=== PATIENT | male | born 1935 | race Caucasian/White ===

== ENCOUNTER 2021-04-30 10:37 | Inpatient (IN) ==
[2021-04-30] MEDS ORDERED: Ondansetron 4 mg VIAL 2 MG/ML 2 ml VIAL IV PRN (11:48)
[2021-04-30 12:46] LABS: ABS Basophils 0.1 10^3/ul (0-0.2); ABS Lymphocytes 0.8 10^3/ul (1.0-4.8); ABS Monocytes 0.8 10^3/ul (0-0.8); ABS Neutrophils 13.4 10^3/ul (1.5-7.7); Eosinophil % 0.2 %; Hematocrit 37 % (42-52); Hemoglobin 12.2 g/dL (14.0-18.0); Mean Corpuscular HGB Conc 33 g/dL (31-36); Mean Corpuscular Hemoglobin 29 pg (27-31); Mean Corpuscular Volume 86 fL (80-94); Platelet Count 360 10^3/uL (150-450); Red Blood Count 4.23 10^6 /uL (4.18-5.48); Red Cell Distribution Width 15 % (10-15); White Blood Count 15.1 10^3/uL (3.5-10.8)
[2021-04-30 13:04] LABS: Albumin 3.4 g/dL (3.2-5.2); Albumin/Globulin Ratio 1.2 (1-3); Globulin 2.9 g/dL (2-4); Magnesium 1.8 mg/dL (1.9-2.7); Phosphorus 2.8 mg/dL (2.5-5.0); Potassium 3.5 mmol/L (3.5-5.0); Total Bilirubin 0.6 mg/dL (0.2-1.0); Total Protein 6.3 g/dL (6.4-8.9); eGFR CKD-EPI 87.3 (>60)
[2021-04-30] MEDS: Lactated Ringers 1000 ml BAG 1,000 ML IV SCH (13:28)
[2021-04-30 18:35] LABS: INR 1.35 (0.86-1.15)
[2021-05-01] MEDS: Lactated Ringers 1000 ml BAG 1,000 ML IV SCH (02:55)
[2021-05-01] MEDS ORDERED: Magnesium Sulfate 2 gm BAG 2 GM/50 ML BAG IVPB ONE (09:06)
[2021-05-01] MEDS ORDERED: PEG 3000 GI LAVAGE 1 GALLON PO ONE ×2 (09:13)
[2021-05-01 12:13] VITALS: BP 110/57
[2021-05-01 13:42] LABS: Ferritin 159.3 ng/mL (24-336)
[2021-05-02 15:42] LABS: % Iron Saturation 8 % (14 - 50); Total Iron Binding Capacity 221 mcg/dL (250 - 400)
== END 2021-05-01 16:50 | disposition short-term general hospital (02) | DRG 376 ==
LOC: SSU 10:37
PROVIDERS: ADMIT Surgery; ATTEND Surgery

== ENCOUNTER 2022-12-05 20:21 | Inpatient (IN) ==
[2022-12-05 20:59] LABS: Hematocrit 39.1 % (38-53); Hemoglobin 13.2 g/dL (13.2-16.3); Mean Corpuscular Hemoglobin 30.9 pg (27-33); Mean Corpuscular Hgb Conc 33.8 g/dL (31-36); Mean Corpuscular Volume 91.3 fL (80-97); Mean Platelet Volume 7.4 fL (7.5-11.2); Platelet Count 165 10^3/uL (150-450); Red Blood Count 4.29 10^6/uL (4.06-5.63); White Blood Count 21.9 10^3/uL (3.6-10.2)
[2022-12-05 21:10] LABS: Activated Partial Thrombo Time 29.6 seconds (26.0-38.0); INR 1.11 (0.83-1.13)
[2022-12-05] MEDS ORDERED: Iodixanol (CONTRAST) 320 MG/ML 100 ML SDV IV ONE (21:22)
[2022-12-05 21:25] LABS: Albumin 4.1 g/dL (3.2-5.2); Albumin/Globulin Ratio 1.6 (1-3); Calcium 9.7 mg/dL (8.6-10.3); Creatinine, Serum 1.2 mg/dL (0.67-1.17); Globulin 2.6 g/dL (2-4); HDL Cholesterol 70.6 mg/dL; Total Bilirubin 1.7 mg/dL (0.2-1.0); Total Protein 6.7 g/dL (6.4-8.9); eGFR CKD-EPI 57.8 (>60)
[2022-12-05 21:29] LABS: Potassium 3.8 mmol/L (3.5-5.0)
[2022-12-05 21:30] LABS: Direct Bilirubin 0.2 mg/dL (0.03-0.18); Indirect Bilirubin 1.5 mg/dL (0.3-1.0)
[2022-12-05 21:51] LABS: ABS Basophils 0.1 10^3/uL (0.0-0.1); ABS Lymphocytes 0.4 10^3/uL (1.0-4.8); ABS Monocytes 1.3 10^3/uL (0.0-1.1); ABS Neutrophils 20.1 10^3/uL (1.5-7.6); ABS Nucleated RBC 0.03 10^3/ul; Eosinophil % 0.1 %; Lymphocyte % 1.7 %; Nucleated Red Blood Cells % 0.1 /100 WBC (0.0-0.4)
[2022-12-05 21:58] LABS: Urine Appearance Turbid; Urine Bilirubin Negative (Negative); Urine Blood 3+ (Negative); Urine Color Yellow; Urine Glucose Negative (Negative); Urine Ketones Trace (Negative); Urine Nitrite Negative (Negative); Urine Protein 2+(100 mg/dL) (Negative); Urine Specific Gravity 1.029 (1.002-1.030); Urine Urobilinogen Negative (Negative)
[2022-12-05] MEDS ORDERED: NORMOSOL-R pH 7.4 SEPSIS* BAG 2,120 ML IV ONE (21:58)
[2022-12-05] MEDS ORDERED: cefTRIAXone 1 gm/50 mL D5W 1 GM/50 ML BAG IV ONE (22:00)
[2022-12-05 22:04] LABS: Urine Amorphous Crystals Present (Absent); Urine Bacteria Absent (Absent); Urine Red Blood Cell 3+(>10/hpf) (Absent); Urine Squamous Epithelial Cell Present (Absent); Urine White Blood Cell 3+(>20/hpf) (Absent)
[2022-12-05 22:28] LABS: C Reactive Protein 26.32 mg/L (<8.01)
[2022-12-05] MEDS ORDERED: Ondansetron 4 mg VIAL 2 MG/ML 2 ml VIAL IV PRN (23:42)
[2022-12-06] MEDS: Enoxaparin 40 MG/0.4 ML SYR SUBCUT SCH ×2 (01:15→20:51)
[2022-12-06] MEDS ORDERED: NS 0.9% 1000 ml BAG 1,000 ML IV SCH (02:00)
[2022-12-06 06:11] LABS: ABS Lymphocytes 0.4 10^3/uL (1.0-4.8); ABS Monocytes 0.9 10^3/uL (0.0-1.1); Eosinophil % 0.1 %; Hematocrit 35.3 % (38-53); Hemoglobin 11.9 g/dL (13.2-16.3); Lymphocyte % 2.1 %; Mean Corpuscular Hemoglobin 31.1 pg (27-33); Mean Corpuscular Hgb Conc 33.7 g/dL (31-36); Mean Corpuscular Volume 92.2 fL (80-97); Mean Platelet Volume 7.8 fL (7.5-11.2); Platelet Count 143 10^3/uL (150-450); Red Blood Count 3.83 10^6/uL (4.06-5.63); White Blood Count 19.3 10^3/uL (3.6-10.2)
[2022-12-06 06:35] LABS: Albumin 3.4 g/dL (3.2-5.2); Albumin/Globulin Ratio 1.4 (1-3); Calcium 8.5 mg/dL (8.6-10.3); Creatinine, Serum 0.97 mg/dL (0.67-1.17); Globulin 2.5 g/dL (2-4); Potassium 3.6 mmol/L (3.5-5.0); Total Bilirubin 1.5 mg/dL (0.2-1.0); Total Protein 5.9 g/dL (6.4-8.9); eGFR CKD-EPI 74.6 (>60)
[2022-12-06] MEDS ORDERED: Piperacillin/Tazobac 3.375 BAG 3.375 GM/100 ML BAG IV ONE (07:37)
[2022-12-06] MEDS ORDERED: Zosyn per Pharmacy NOTE FOLLOW UP SCH (08:00)
[2022-12-06] MEDS: PTO: Multivitamins/Mins AREDS2 (NF) CAP PO SCH ×2 (08:47→21:07)
[2022-12-06] MEDS: ZOSYN 3.375 GM Q8H per EXTENDED INFUSION IV SCH ×2 (12:06→20:51)
[2022-12-06] MEDS ORDERED: cefTRIAXone 1 gm/50 mL D5W 1 GM/50 ML BAG IV SCH (21:00)
[2022-12-07] MEDS: ZOSYN 3.375 GM Q8H per EXTENDED INFUSION IV SCH ×3 (04:50→20:21)
[2022-12-07] MEDS: PTO: Multivitamins/Mins AREDS2 (NF) CAP PO SCH ×2 (10:31→20:20)
[2022-12-07] MEDS: Enoxaparin 40 MG/0.4 ML SYR SUBCUT SCH (20:20)
[2022-12-08] MEDS: ZOSYN 3.375 GM Q8H per EXTENDED INFUSION IV SCH (04:57)
[2022-12-08 07:22] LABS: ABS Eosinophils 0.1 10^3/uL (0.0-0.5); ABS Lymphocytes 0.6 10^3/uL (1.0-4.8); ABS Monocytes 0.8 10^3/uL (0.0-1.1); ABS Neutrophils 10.2 10^3/uL (1.5-7.6); Hematocrit 36.1 % (38-53); Hemoglobin 12.4 g/dL (13.2-16.3); Lymphocyte % 4.9 %; Mean Corpuscular Hemoglobin 31.1 pg (27-33); Mean Corpuscular Hgb Conc 34.2 g/dL (31-36); Mean Platelet Volume 8.1 fL (7.5-11.2); Platelet Count 135 10^3/uL (150-450); Red Blood Count 3.97 10^6/uL (4.06-5.63); White Blood Count 11.7 10^3/uL (3.6-10.2)
[2022-12-08] MEDS: PTO: Multivitamins/Mins AREDS2 (NF) CAP PO SCH (07:45)
[2022-12-08] MEDS ORDERED: Lactated Ringers 1000 ml BAG 1,000 ML IV ONE (09:32)
[2022-12-08 13:26] VITALS: BP 110/62
== END 2022-12-08 15:33 | disposition home or self-care (01) | DRG 871 ==
LOC: ED 20:21 → EDHOLD 20:21 → SUATTDRO 23:42 → MED 12-06 00:37 → SUATTDRO 12-06 15:34
PROVIDERS: ADMIT Student in an Organized Health Care Education/Training Program; ATTEND Internal Medicine

== ENCOUNTER 2022-12-10 21:48 | Inpatient (IN) ==
[2022-12-10] MEDS ORDERED: LACTATED RINGERS IV ONE (22:24)
[2022-12-10 23:06] LABS: ABS Lymphocytes 0.3 10^3/uL (1.0-4.8); ABS Monocytes 0.5 10^3/uL (0.0-1.1); ABS Neutrophils 8.6 10^3/uL (1.5-7.6); Eosinophil % 0.1 %; Hematocrit 33.6 % (38-53); Hemoglobin 11.8 g/dL (13.2-16.3); Lymphocyte % 3.5 %; Mean Corpuscular Hemoglobin 31.8 pg (27-33); Mean Corpuscular Volume 90.9 fL (80-97); Mean Platelet Volume 7.5 fL (7.5-11.2); Platelet Count 151 10^3/uL (150-450); Red Cell Distribution Width 13.9 % (12-17); White Blood Count 9.4 10^3/uL (3.6-10.2)
[2022-12-10 23:35] LABS: Activated Partial Thrombo Time 28.7 seconds (26.0-38.0); INR 1.15 (0.83-1.13)
[2022-12-10 23:38] LABS: Albumin 3.4 g/dL (3.2-5.2); Albumin/Globulin Ratio 1.3 (1-3); C Reactive Protein 138.33 mg/L (<8.01); Calcium 8.4 mg/dL (8.6-10.3); Creatinine, Serum 1.7 mg/dL (0.67-1.17); Globulin 2.7 g/dL (2-4); Total Bilirubin 1.2 mg/dL (0.2-1.0); Total Protein 6.1 g/dL (6.4-8.9); eGFR CKD-EPI 38.1 (>60)
[2022-12-11 00:20] LABS: Magnesium 1.5 mg/dL (1.9-2.7)
[2022-12-11] MEDS ORDERED: Magnesium Sulfate 2 gm BAG 2 GM/50 ML BAG IVPB ONE (00:30)
[2022-12-11] MEDS ORDERED: KCL 20 MEQ/100 ML IVPREMIX 20 MEQ/100 ML BAG IV ONE (00:30)
[2022-12-11] MEDS ORDERED: Potassium Chlor 20 meq TAB.ER PO ONE (00:30)
[2022-12-11 00:47] LABS: High Sensitivity Troponin 1 Hr 28 pg/mL (<20)
[2022-12-11] MEDS ORDERED: Cefepime 1 GM in Dextrose 1 GM/50 ML BAG IV ONE (03:02)
[2022-12-11] MEDS ORDERED: Ondansetron 4 mg VIAL 2 MG/ML 2 ml VIAL IV PRN (04:26)
[2022-12-11] MEDS ORDERED: Acetaminophen IV 1 GM/100ML 1,000 MG/100 ML BAG IV ONE (04:30)
[2022-12-11 06:25] LABS: Urine Appearance Cloudy; Urine Bilirubin Negative (Negative); Urine Blood 2+ (Negative); Urine Color Yellow; Urine Glucose Negative (Negative); Urine Ketones Trace (Negative); Urine Nitrite Negative (Negative); Urine Protein 2+(100 mg/dL) (Negative); Urine Specific Gravity 1.009 (1.002-1.030); Urine Urobilinogen Negative (Negative)
[2022-12-11 06:32] LABS: Urine Amorphous Crystals Present (Absent); Urine Bacteria Absent (Absent); Urine Red Blood Cell 3+(>10/hpf) (Absent); Urine Squamous Epithelial Cell Present (Absent); Urine White Blood Cell 3+(>20/hpf) (Absent); Urine Yeast Present (Absent)
[2022-12-11 07:24] LABS: Urine Creatinine Concentration 50.82 mg/dL (20.00-370.00)
[2022-12-11 08:07] LABS: ABS Lymphocytes 0.4 10^3/uL (1.0-4.8); ABS Monocytes 0.5 10^3/uL (0.0-1.1); ABS Neutrophils 8.6 10^3/uL (1.5-7.6); Eosinophil % 0.1 %; Hematocrit 32.2 % (38-53); Hemoglobin 11.1 g/dL (13.2-16.3); Lymphocyte % 4.3 %; Mean Corpuscular Hemoglobin 31.3 pg (27-33); Mean Corpuscular Hgb Conc 34.4 g/dL (31-36); Mean Corpuscular Volume 91.1 fL (80-97); Mean Platelet Volume 7.4 fL (7.5-11.2); Platelet Count 152 10^3/uL (150-450); Red Blood Count 3.53 10^6/uL (4.06-5.63); White Blood Count 9.6 10^3/uL (3.6-10.2)
[2022-12-11 08:27] LABS: Calcium 7.8 mg/dL (8.6-10.3); Creatinine, Serum 1.35 mg/dL (0.67-1.17); eGFR CKD-EPI 50.2 (>60)
[2022-12-11] MEDS: Heparin 5000 UNITS/ML 1 mL VIAL SUBCUT SCH ×3 (12:03→22:29)
[2022-12-11] MEDS: PTO:Multivitamins/Mins AREDS2 (NF) CAP PO SCH ×2 (12:46→23:15)
[2022-12-11] MEDS: Acetaminophen IV 1 GM/100ML 1,000 MG/100 ML BAG IV PRN (12:50)
[2022-12-11] MEDS: Lactated Ringers 1000 ml BAG 1,000 ML IV SCH (15:37)
[2022-12-11] MEDS: Cefepime 1 GM in Dextrose 1 GM/50 ML BAG IV SCH (17:51)
[2022-12-11] MEDS: Potassium Chloride LIQUID 20 MEQ/15 ML LIQUID PO SCH ×2 (17:51→22:32)
[2022-12-11] MEDS ORDERED: Anidulafungin 200 MG in NS 0.9% 250 ml 200 ML IVPB ONE (20:00)
[2022-12-12] MEDS: Potassium Chloride LIQUID 20 MEQ/15 ML LIQUID PO SCH (01:01)
[2022-12-12] MEDS: Lactated Ringers 1000 ml BAG 1,000 ML IV SCH (02:40)
[2022-12-12] MEDS: Cefepime 1 GM in Dextrose 1 GM/50 ML BAG IV SCH ×2 (06:15→18:48)
[2022-12-12] MEDS: Heparin 5000 UNITS/ML 1 mL VIAL SUBCUT SCH ×3 (06:17→22:18)
[2022-12-12 06:57] LABS: ABS Lymphocytes 0.3 10^3/uL (1.0-4.8); ABS Monocytes 0.4 10^3/uL (0.0-1.1); ABS Neutrophils 8.1 10^3/uL (1.5-7.6); Eosinophil % 0.4 %; Hematocrit 32.2 % (38-53); Hemoglobin 11.1 g/dL (13.2-16.3); Lymphocyte % 3.8 %; Mean Corpuscular Hemoglobin 31.8 pg (27-33); Mean Corpuscular Hgb Conc 34.4 g/dL (31-36); Mean Corpuscular Volume 92.4 fL (80-97); Mean Platelet Volume 7.4 fL (7.5-11.2); Platelet Count 165 10^3/uL (150-450); Red Blood Count 3.48 10^6/uL (4.06-5.63); Red Cell Distribution Width 14.1 % (12-17)
[2022-12-12 07:14] LABS: Calcium 7.7 mg/dL (8.6-10.3); Creatinine, Serum 1.12 mg/dL (0.67-1.17); Magnesium 1.6 mg/dL (1.9-2.7); Potassium 3.3 mmol/L (3.5-5.0); eGFR CKD-EPI 62.8 (>60)
[2022-12-12] MEDS ORDERED: Magnesium Sulf 4 GM/100 ML IV 4,000 MG/100 ML BAG IVPB ONE (07:17)
[2022-12-12] MEDS: ALIGN PROBIOTIC PO SCH (07:22)
[2022-12-12] MEDS: PTO:Multivitamins/Mins AREDS2 (NF) CAP PO SCH ×2 (07:22→22:17)
[2022-12-12] MEDS: KCL 20 MEQ/100 ML IVPREMIX 20 MEQ/100 ML BAG IV SCH ×2 (09:55→11:57)
[2022-12-12] MEDS ORDERED: Lactated Ringers 1000 ml BAG 1,000 ML IV SCH (12:28)
[2022-12-12] MEDS ORDERED: Propofol 10 MG/ML 20 ML BTL ONE (16:30)
[2022-12-12] MEDS ORDERED: Lidocaine 2% PF 5 ML VIAL ONE (16:30)
[2022-12-12] MEDS ORDERED: fentaNYL 100 mcg/2 ml 50 MCG/ML VIAL ONE ×2 (16:31→18:23)
[2022-12-12] MEDS ORDERED: Iohexol 180 (CONTRAST) 10 ML SDV IV ONE (17:05)
[2022-12-12] MEDS ORDERED: Naloxone 0.4 mg VIAL 0.4 mg/ml 1 ml VIAL IV PRN (18:44)
[2022-12-12] MEDS ORDERED: fentaNYL 100 mcg/2 ml 50 MCG/ML VIAL IV PRN (18:44)
[2022-12-12] MEDS ORDERED: Ondansetron 4 mg VIAL 2 MG/ML 2 ml VIAL IV PRN (18:44)
[2022-12-12] MEDS ORDERED: Acetaminophen IV 1 GM/100ML 1,000 MG/100 ML BAG IV ONE (18:45)
[2022-12-12] MEDS: Acetaminophen IV 1 GM/100ML 1,000 MG/100 ML BAG IV PRN (18:48)
[2022-12-12] MEDS: Anidulafungin 100 MG in NS 0.9% 100 ml BAG 100 ML IVPB SCH (22:20)
[2022-12-13] MEDS: Heparin 5000 UNITS/ML 1 mL VIAL SUBCUT SCH ×3 (05:17→21:57)
[2022-12-13] MEDS: Cefepime 1 GM in Dextrose 1 GM/50 ML BAG IV SCH ×2 (05:17→17:38)
[2022-12-13 07:18] LABS: ABS Lymphocytes 0.4 10^3/uL (1.0-4.8); ABS Monocytes 0.4 10^3/uL (0.0-1.1); ABS Neutrophils 8.1 10^3/uL (1.5-7.6); Eosinophil % 0.1 %; Hematocrit 32.8 % (38-53); Hemoglobin 11.4 g/dL (13.2-16.3); Lymphocyte % 4.1 %; Mean Corpuscular Hemoglobin 31.3 pg (27-33); Mean Corpuscular Hgb Conc 34.7 g/dL (31-36); Mean Corpuscular Volume 90.1 fL (80-97); Mean Platelet Volume 7.7 fL (7.5-11.2); Platelet Count 220 10^3/uL (150-450); Red Blood Count 3.64 10^6/uL (4.06-5.63); Red Cell Distribution Width 13.8 % (12-17); White Blood Count 8.9 10^3/uL (3.6-10.2)
[2022-12-13 07:39] LABS: Calcium 7.6 mg/dL (8.6-10.3); Creatinine, Serum 1.09 mg/dL (0.67-1.17); Potassium 3.6 mmol/L (3.5-5.0); eGFR CKD-EPI 64.9 (>60)
[2022-12-13] MEDS: KCL 20 MEQ/100 ML IVPREMIX 20 MEQ/100 ML BAG IV SCH ×2 (08:38→10:55)
[2022-12-13] MEDS: ALIGN PROBIOTIC PO SCH (08:45)
[2022-12-13] MEDS: PTO:Multivitamins/Mins AREDS2 (NF) CAP PO SCH ×2 (08:45→20:30)
[2022-12-13] MEDS ORDERED: Lidocaine 1% MPF 5 ML VIAL INJ ONE (11:42)
[2022-12-13 12:49] LABS: Anaplasma phagocytophilum Negative (Negative); B. miyamotoi PCR, B Negative (Negative); Babesia divergens/MO-1 Negative (Negative); Babesia ducani Negative (Negative); Ehrlichia chaffeensis Negative (Negative); Ehrlichia ewingii/canis Negative (Negative); Ehrlichia muris eauclairensis Negative (Negative)
[2022-12-13] MEDS: Anidulafungin 100 MG in NS 0.9% 100 ml BAG 100 ML IVPB SCH (20:30)
[2022-12-14] MEDS: Heparin 5000 UNITS/ML 1 mL VIAL SUBCUT SCH ×3 (05:40→20:54)
[2022-12-14] MEDS: Cefepime 1 GM in Dextrose 1 GM/50 ML BAG IV SCH (05:40)
[2022-12-14 08:08] LABS: ABS Eosinophils 0.3 10^3/uL (0.0-0.5); ABS Lymphocytes 0.8 10^3/uL (1.0-4.8); ABS Monocytes 0.6 10^3/uL (0.0-1.1); ABS Neutrophils 6.9 10^3/uL (1.5-7.6); Eosinophil % 3.5 %; Hematocrit 34.2 % (38-53); Hemoglobin 11.7 g/dL (13.2-16.3); Lymphocyte % 9.4 %; Mean Corpuscular Hgb Conc 34.2 g/dL (31-36); Mean Corpuscular Volume 90.5 fL (80-97); Mean Platelet Volume 7.7 fL (7.5-11.2); Platelet Count 276 10^3/uL (150-450); Red Blood Count 3.78 10^6/uL (4.06-5.63); Red Cell Distribution Width 14.3 % (12-17); White Blood Count 8.7 10^3/uL (3.6-10.2)
[2022-12-14] MEDS: ALIGN PROBIOTIC PO SCH (08:09)
[2022-12-14] MEDS: PTO:Multivitamins/Mins AREDS2 (NF) CAP PO SCH ×2 (08:09→20:55)
[2022-12-14 08:29] LABS: Calcium 7.9 mg/dL (8.6-10.3); Creatinine, Serum 1.04 mg/dL (0.67-1.17); Magnesium 1.8 mg/dL (1.9-2.7); Potassium 3.7 mmol/L (3.5-5.0); eGFR CKD-EPI 68.6 (>60)
[2022-12-14] MEDS ORDERED: Magnesium Sulfate IV 1GM/100ML 1 GM/100 ML BAG IV ONE (08:33)
[2022-12-14] MEDS: Anidulafungin 100 MG in NS 0.9% 100 ml BAG 100 ML IVPB SCH (20:54)
[2022-12-15] MEDS: Nystatin TOP POWDER 15 GM BTL TOPICAL SCH ×4 (02:34→20:26)
[2022-12-15] MEDS: Heparin 5000 UNITS/ML 1 mL VIAL SUBCUT SCH ×3 (04:56→21:35)
[2022-12-15 05:10] LABS: Hematocrit 31.3 % (38-53); Hemoglobin 10.9 g/dL (13.2-16.3); Mean Corpuscular Hemoglobin 31.3 pg (27-33); Mean Corpuscular Hgb Conc 34.6 g/dL (31-36); Mean Corpuscular Volume 90.2 fL (80-97); Mean Platelet Volume 7.3 fL (7.5-11.2); Platelet Count 267 10^3/uL (150-450); Red Blood Count 3.47 10^6/uL (4.06-5.63); White Blood Count 8.5 10^3/uL (3.6-10.2)
[2022-12-15 05:25] LABS: Creatinine, Serum 0.91 mg/dL (0.67-1.17); Magnesium 1.8 mg/dL (1.9-2.7); Potassium 3.1 mmol/L (3.5-5.0); eGFR CKD-EPI 80.6 (>60)
[2022-12-15 05:26] LABS: ABS Eosinophils 0.3 10^3/uL (0.0-0.5); ABS Lymphocytes 1.1 10^3/uL (1.0-4.8); ABS Monocytes 0.6 10^3/uL (0.0-1.1); ABS Neutrophils 6.5 10^3/uL (1.5-7.6); Eosinophil % 3.1 %; Lymphocyte % 12.7 %
[2022-12-15] MEDS: PTO:Multivitamins/Mins AREDS2 (NF) CAP PO SCH ×2 (08:57→20:25)
[2022-12-15] MEDS: ALIGN PROBIOTIC PO SCH (08:57)
[2022-12-15] MEDS: KCL 20 MEQ/100 ML IVPREMIX 20 MEQ/100 ML BAG IV SCH ×2 (09:00→11:10)
[2022-12-15] MEDS: Anidulafungin 100 MG in NS 0.9% 100 ml BAG 100 ML IVPB SCH (20:20)
[2022-12-15] MEDS: Benzocaine (plain) Lozenge 15 MG MT PRN (21:35)
[2022-12-16] MEDS: Benzocaine (plain) Lozenge 15 MG MT PRN (04:45)
[2022-12-16 04:47] LABS: Hematocrit 29.5 % (38-53); Hemoglobin 10.5 g/dL (13.2-16.3); Mean Corpuscular Hemoglobin 32.1 pg (27-33); Mean Corpuscular Hgb Conc 35.6 g/dL (31-36); Mean Corpuscular Volume 90.1 fL (80-97); Mean Platelet Volume 7.2 fL (7.5-11.2); Platelet Count 275 10^3/uL (150-450); Red Blood Count 3.27 10^6/uL (4.06-5.63); Red Cell Distribution Width 14.1 % (12-17); White Blood Count 9.4 10^3/uL (3.6-10.2)
[2022-12-16 05:03] LABS: Calcium 8.1 mg/dL (8.6-10.3); Creatinine, Serum 0.91 mg/dL (0.67-1.17); Magnesium 1.7 mg/dL (1.9-2.7); Phosphorus 2.5 mg/dL (2.5-5.0); Potassium 3.4 mmol/L (3.5-5.0); eGFR CKD-EPI 80.6 (>60)
[2022-12-16] MEDS: Heparin 5000 UNITS/ML 1 mL VIAL SUBCUT SCH ×3 (05:28→22:10)
[2022-12-16] MEDS ORDERED: Magnesium Sulfate 2 gm BAG 2 GM/50 ML BAG IVPB ONE (07:20)
[2022-12-16] MEDS: ALIGN PROBIOTIC PO SCH (08:24)
[2022-12-16] MEDS: Nystatin TOP POWDER 15 GM BTL TOPICAL SCH ×3 (08:34→21:03)
[2022-12-16 09:41] LABS: ABS Eosinophils 0.2 10^3/uL (0.0-0.5); ABS Lymphocytes 1.6 10^3/uL (1.0-4.8); ABS Monocytes 0.5 10^3/uL (0.0-1.1); ABS Neutrophils 7.1 10^3/uL (1.5-7.6); Eosinophil % 1.7 %; Lymphocyte % 16.6 %; RBC Morphology Normal (Normal)
[2022-12-16 11:21] LABS: C Reactive Protein 25.28 mg/L (<8.01)
[2022-12-16] MEDS: KCL 20 MEQ/100 ML IVPREMIX 20 MEQ/100 ML BAG IV SCH ×2 (12:13→15:14)
[2022-12-16] MEDS: PTO:Multivitamins/Mins AREDS2 (NF) CAP PO SCH ×2 (12:52→20:27)
[2022-12-16] MEDS ORDERED: KCL 20 MEQ/100 ML IVPREMIX 20 MEQ/100 ML BAG IV SCH (16:00)
[2022-12-16] MEDS: Anidulafungin 100 MG in NS 0.9% 100 ml BAG 100 ML IVPB SCH (20:53)
[2022-12-17 04:36] LABS: Hematocrit 29.8 % (38-53); Hemoglobin 10.2 g/dL (13.2-16.3); Mean Corpuscular Hgb Conc 34.3 g/dL (31-36); Mean Corpuscular Volume 90.3 fL (80-97); Mean Platelet Volume 7.2 fL (7.5-11.2); Platelet Count 320 10^3/uL (150-450); Red Cell Distribution Width 14.4 % (12-17); White Blood Count 12.4 10^3/uL (3.6-10.2)
[2022-12-17 04:52] LABS: Calcium 8.1 mg/dL (8.6-10.3); Creatinine, Serum 0.88 mg/dL (0.67-1.17); Magnesium 1.9 mg/dL (1.9-2.7); Potassium 3.5 mmol/L (3.5-5.0); eGFR CKD-EPI 82.2 (>60)
[2022-12-17 04:58] LABS: ABS Eosinophils 0.3 10^3/uL (0.0-0.5); ABS Lymphocytes 1.6 10^3/uL (1.0-4.8); ABS Monocytes 0.6 10^3/uL (0.0-1.1); ABS Neutrophils 9.9 10^3/uL (1.5-7.6); Lymphocyte % 12.7 %; RBC Morphology Normal (Normal)
[2022-12-17] MEDS: Heparin 5000 UNITS/ML 1 mL VIAL SUBCUT SCH ×3 (05:28→21:06)
[2022-12-17] MEDS ORDERED: NS 0.9% 1000 ml BAG 1,000 ML IV ONE (07:00)
[2022-12-17] MEDS: Nystatin TOP POWDER 15 GM BTL TOPICAL SCH ×3 (08:13→21:07)
[2022-12-17] MEDS ORDERED: fentaNYL 100 mcg/2 ml 50 MCG/ML VIAL ONE (14:36)
[2022-12-17] MEDS ORDERED: Naloxone 0.4 mg VIAL 0.4 mg/ml 1 ml VIAL ONE (14:36)
[2022-12-17] MEDS ORDERED: Flumazenil 0.5 mg/5 ml 0.1 MG/ML 5 ml VIAL ONE (14:36)
[2022-12-17] MEDS ORDERED: Midazolam 5 mg/5 ml VIAL 1 mg/ml 5 ml VIAL (5 mg) ONE (14:36)
[2022-12-17] MEDS ORDERED: fentaNYL 100 mcg/2 ml 50 MCG/ML VIAL IV SLOW PU ONE (15:02)
[2022-12-17] MEDS ORDERED: Midazolam 10 mg/10 ml VIAL 1 mg/ml 10 ml VIAL (10 mg) IV SLOW PU ONE (15:02)
[2022-12-17] MEDS: ALIGN PROBIOTIC PO SCH (15:59)
[2022-12-17] MEDS: PTO:Multivitamins/Mins AREDS2 (NF) CAP PO SCH ×2 (15:59→21:07)
[2022-12-17] MEDS: Anidulafungin 100 MG in NS 0.9% 100 ml BAG 100 ML IVPB SCH (21:07)
[2022-12-18] MEDS: Heparin 5000 UNITS/ML 1 mL VIAL SUBCUT SCH (05:43)
[2022-12-18 06:17] LABS: Hemoglobin 10.2 g/dL (13.2-16.3); Mean Corpuscular Hemoglobin 30.9 pg (27-33); Mean Corpuscular Volume 90.9 fL (80-97); Mean Platelet Volume 7.1 fL (7.5-11.2); Platelet Count 368 10^3/uL (150-450); Red Cell Distribution Width 14.3 % (12-17); White Blood Count 13.1 10^3/uL (3.6-10.2)
[2022-12-18 06:37] LABS: Creatinine, Serum 0.94 mg/dL (0.67-1.17); Magnesium 1.7 mg/dL (1.9-2.7); Potassium 3.3 mmol/L (3.5-5.0); eGFR CKD-EPI 77.5 (>60)
[2022-12-18 06:47] LABS: ABS Basophils 0.1 10^3/uL (0.0-0.1); ABS Eosinophils 0.3 10^3/uL (0.0-0.5); ABS Lymphocytes 1.5 10^3/uL (1.0-4.8); ABS Monocytes 0.6 10^3/uL (0.0-1.1); ABS Neutrophils 10.6 10^3/uL (1.5-7.6); Eosinophil % 2.1 %; Lymphocyte % 11.5 %
[2022-12-18] MEDS: PTO:Multivitamins/Mins AREDS2 (NF) CAP PO SCH (08:13)
[2022-12-18] MEDS: ALIGN PROBIOTIC PO SCH (08:13)
[2022-12-18] MEDS: Nystatin TOP POWDER 15 GM BTL TOPICAL SCH (08:14)
[2022-12-18 09:00] LABS: C Reactive Protein 12.35 mg/L (<8.01)
[2022-12-18 09:28] LABS: Rapid COVID-19 Molecular Undetected (Undetected)
[2022-12-18] MEDS ORDERED: Potassium Chlor 20 meq TAB.ER PO ONE (09:32)
[2022-12-18 10:10] VITALS: BP 165/60
== END 2022-12-18 10:55 | disposition swing bed (61) | DRG 853 ==
LOC: ED 21:48 → EDHOLD 21:48 → SUATTDRO 12-11 03:59 → SSU 12-11 05:50 → SUATTDRO 12-13 04:00
PROVIDERS: ADMIT Internal Medicine; ATTEND Hospitalist

== ENCOUNTER 2023-07-28 02:56 | Inpatient (IN) ==
[2023-07-28] MEDS: Ondansetron 4 mg VIAL 2 MG/ML 2 ml VIAL IV ONE (04:06)
[2023-07-28] MEDS: Morphine 4 MG/ML VIAL (1 ml) IV ONE (04:06)
[2023-07-28 04:09] LABS: ABS Lymphocytes 0.8 10^3/uL (1.0-4.8); ABS Monocytes 0.4 10^3/uL (0.0-1.1); ABS Neutrophils 8.5 10^3/uL (1.5-7.6); ABS Nucleated RBC 0.01 10^3/ul; Eosinophil % 0.4 %; Hematocrit 36.4 % (38-53); Hemoglobin 12.4 g/dL (13.2-16.3); Lymphocyte % 8.2 %; Mean Corpuscular Hemoglobin 31.3 pg (27-33); Mean Corpuscular Hgb Conc 34.1 g/dL (31-36); Mean Corpuscular Volume 91.7 fL (80-97); Mean Platelet Volume 7.5 fL (7.5-11.2); Nucleated Red Blood Cells % 0.1 %/100WBC (0.0-0.8); Platelet Count 150 10^3/uL (150-450); Red Blood Count 3.97 10^6/uL (4.06-5.63); Red Cell Distribution Width 14.6 % (12-17); White Blood Count 9.8 10^3/uL (3.6-10.2)
[2023-07-28 04:53] LABS: Albumin 3.4 g/dL (3.2-5.2); Albumin/Globulin Ratio 1.8 (1-3); C Reactive Protein 1.76 mg/L (<8.01); Calcium 7.6 mg/dL (8.6-10.3); Creatinine, Serum 0.78 mg/dL (0.67-1.17); Globulin 1.9 g/dL (2-4); Potassium 3.1 mmol/L (3.5-5.0); Total Bilirubin 0.6 mg/dL (0.2-1.0); Total Protein 5.3 g/dL (6.4-8.9); eGFR CKD-EPI 85.2 (>60)
[2023-07-28 07:59] LABS: Urine Appearance Clear; Urine Bilirubin Negative (Negative); Urine Blood Trace (Negative); Urine Color Light-Yellow; Urine Glucose Negative (Negative); Urine Ketones Negative (Negative); Urine Nitrite Negative (Negative); Urine Protein Negative (Negative); Urine Specific Gravity 1.028 (1.002-1.030); Urine Urobilinogen Negative (Negative)
[2023-07-28] MEDS: Lactated Ringers 1000 ml BAG 1,000 ML IV ONE (08:16)
[2023-07-28] MEDS: KCL 20 MEQ/100 ML IVPREMIX 20 MEQ/100 ML BAG IV ONE (08:17)
[2023-07-28] MEDS: Potassium Chlor 20 meq TAB.ER PO ONE (08:17)
[2023-07-28 08:29] LABS: Urine Bacteria Absent /HPF (Absent); Urine Red Blood Cell 2+(6-10/hpf) /HPF (0-Trace); Urine White Blood Cell 3+(>20/hpf) /HPF (0-Trace)
[2023-07-28] MEDS: Enoxaparin 40 MG/0.4 ML SYR SUBCUT SCH (13:16)
[2023-07-29] MEDS: Iohexol 300 (CONTRAST) 10 ML SDV IV ONE (03:37)
[2023-07-29 06:05] LABS: ABS Lymphocytes 0.7 10^3/uL (1.0-4.8); ABS Neutrophils 11.3 10^3/uL (1.5-7.6); ABS Nucleated RBC 0.01 10^3/ul; Eosinophil % 0.2 %; Hematocrit 42.8 % (38-53); Hemoglobin 14.6 g/dL (13.2-16.3); Lymphocyte % 5.4 %; Mean Corpuscular Hemoglobin 30.9 pg (27-33); Mean Corpuscular Hgb Conc 34.2 g/dL (31-36); Mean Corpuscular Volume 90.3 fL (80-97); Nucleated Red Blood Cells % 0.1 %/100WBC (0.0-0.8); Platelet Count 192 10^3/uL (150-450); Red Blood Count 4.74 10^6/uL (4.06-5.63); Red Cell Distribution Width 14.5 % (12-17)
[2023-07-29 06:29] LABS: Calcium 9.1 mg/dL (8.6-10.3); Creatinine, Serum 0.72 mg/dL (0.67-1.17); Magnesium 1.8 mg/dL (1.9-2.7); Potassium 3.8 mmol/L (3.5-5.0); eGFR CKD-EPI 87.3 (>60)
[2023-07-29] MEDS: Magnesium Sulfate 2 gm BAG 2 GM/50 ML BAG IVPB ONE (08:45)
[2023-07-29] MEDS ORDERED: Labetalol IV 5 MG/ML 20 ml VIAL IV PUSH PRN (14:29)
[2023-07-29] MEDS ORDERED: Zosyn per Pharmacy NOTE FOLLOW UP SCH ×2 (17:00)
[2023-07-29] MEDS: Piperacillin/Tazobac 3.375 BAG 3.375 GM/100 ML BAG IV ONE (17:49)
[2023-07-29] MEDS: Ondansetron 4 mg VIAL 2 MG/ML 2 ml VIAL IV PRN (17:57)
[2023-07-29] MEDS: ZOSYN 3.375 GM Q8H per EXTENDED INFUSION IV SCH (22:00)
[2023-07-30] MEDS: Magnesium Sulfate 2 gm BAG 2 GM/50 ML BAG IVPB ONE (06:30)
[2023-07-30] MEDS: Lactated Ringers 1000 ml BAG 1,000 ML IV SCH ×2 (06:31→16:21)
[2023-07-30 07:19] LABS: ABS Lymphocytes 0.4 10^3/uL (1.0-4.8); ABS Monocytes 1.2 10^3/uL (0.0-1.1); ABS Neutrophils 12.2 10^3/uL (1.5-7.6); ABS Nucleated RBC 0.02 10^3/ul; Eosinophil % 0.2 %; Hematocrit 47.3 % (38-53); Hemoglobin 15.7 g/dL (13.2-16.3); Lymphocyte % 3.1 %; Mean Corpuscular Hgb Conc 33.1 g/dL (31-36); Mean Corpuscular Volume 93.5 fL (80-97); Mean Platelet Volume 10.2 fL (7.5-11.2); Nucleated Red Blood Cells % 0.2 %/100WBC (0.0-0.8); Platelet Count 157 10^3/uL (150-450); Red Blood Count 5.06 10^6/uL (4.06-5.63); Red Cell Distribution Width 14.6 % (12-17)
[2023-07-30 07:30] LABS: Calcium 9.3 mg/dL (8.6-10.3); Creatinine, Serum 1.03 mg/dL (0.67-1.17); Potassium 3.6 mmol/L (3.5-5.0); eGFR CKD-EPI 69.4 (>60)
[2023-07-30] MEDS: Potassium Chlor 20 meq TAB.ER PO ONE (11:19)
[2023-07-30 13:19] LABS: Magnesium 2.1 mg/dL (1.9-2.7); Phosphorus 3.3 mg/dL (2.5-5.0)
[2023-07-30] MEDS: Iohexol 300 (CONTRAST) 10 ML SDV IV ONE (16:06)
[2023-07-30] MEDS: Nystatin TOP POWDER 15 GM BTL TOPICAL SCH (23:04)
[2023-07-31] MEDS: Acetaminophen IV 1 GM/100ML 1,000 MG/100 ML BAG IV PRN (05:36)
[2023-07-31 06:14] LABS: ABS Eosinophils 0.1 10^3/uL (0.0-0.5); ABS Lymphocytes 0.7 10^3/uL (1.0-4.8); ABS Monocytes 1.2 10^3/uL (0.0-1.1); ABS Neutrophils 17.9 10^3/uL (1.5-7.6); Eosinophil % 0.4 %; Hematocrit 40.8 % (38-53); Hemoglobin 13.7 g/dL (13.2-16.3); Lymphocyte % 3.3 %; Mean Corpuscular Hemoglobin 30.7 pg (27-33); Mean Corpuscular Hgb Conc 33.5 g/dL (31-36); Mean Corpuscular Volume 91.5 fL (80-97); Mean Platelet Volume 8.2 fL (7.5-11.2); Platelet Count 185 10^3/uL (150-450); Red Blood Count 4.46 10^6/uL (4.06-5.63); Red Cell Distribution Width 14.5 % (12-17); White Blood Count 19.8 10^3/uL (3.6-10.2)
[2023-07-31 06:49] LABS: Creatinine, Serum 1.23 mg/dL (0.67-1.17); Potassium 3.4 mmol/L (3.5-5.0); eGFR CKD-EPI 56.1 (>60)
[2023-07-31 08:42] LABS: Magnesium 2.3 mg/dL (1.9-2.7)
[2023-07-31] MEDS: Lactated Ringers 1000 ml BAG 1,000 ML IV ONE (09:23)
[2023-07-31] MEDS: KCL 20 MEQ/100 ML IVPREMIX 20 MEQ/100 ML BAG IV SCH (09:26)
[2023-07-31] MEDS: D5NS 0.9% 1000 ml BAG 1,000 ML IV SCH (13:05)
[2023-07-31] MEDS: Pantoprazole VIAL 40 MG VIAL IV SCH (14:13)
[2023-07-31 17:08] LABS: Calcium 8.8 mg/dL (8.6-10.3); Creatinine, Serum 1.25 mg/dL (0.67-1.17); Magnesium 2.2 mg/dL (1.9-2.7); Potassium 3.6 mmol/L (3.5-5.0)
[2023-08-01 05:28] LABS: ABS Eosinophils 0.1 10^3/uL (0.0-0.5); ABS Lymphocytes 0.5 10^3/uL (1.0-4.8); ABS Monocytes 0.8 10^3/uL (0.0-1.1); ABS Neutrophils 11.1 10^3/uL (1.5-7.6); Eosinophil % 0.9 %; Hematocrit 34.3 % (38-53); Hemoglobin 11.6 g/dL (13.2-16.3); Lymphocyte % 4.2 %; Mean Corpuscular Hemoglobin 30.9 pg (27-33); Mean Corpuscular Hgb Conc 33.9 g/dL (31-36); Mean Corpuscular Volume 91.1 fL (80-97); Mean Platelet Volume 7.7 fL (7.5-11.2); Platelet Count 167 10^3/uL (150-450); Red Blood Count 3.76 10^6/uL (4.06-5.63); Red Cell Distribution Width 14.5 % (12-17); White Blood Count 12.5 10^3/uL (3.6-10.2)
[2023-08-01 06:21] LABS: Calcium 7.7 mg/dL (8.6-10.3); Creatinine, Serum 1.04 mg/dL (0.67-1.17); Potassium 3.2 mmol/L (3.5-5.0); eGFR CKD-EPI 68.6 (>60)
[2023-08-01 07:45] LABS: Albumin 2.9 g/dL (3.2-5.2); Albumin/Globulin Ratio 1.7 (1-3); Globulin 1.7 g/dL (2-4); Total Bilirubin 1.2 mg/dL (0.2-1.0); Total Protein 4.6 g/dL (6.4-8.9)
[2023-08-01] MEDS: KCL 20 MEQ/100 ML IVPREMIX 20 MEQ/100 ML BAG IV SCH (08:29)
[2023-08-02 08:26] LABS: ABS Eosinophils 0.2 10^3/uL (0.0-0.5); ABS Lymphocytes 0.5 10^3/uL (1.0-4.8); ABS Monocytes 0.6 10^3/uL (0.0-1.1); ABS Neutrophils 9.1 10^3/uL (1.5-7.6); Eosinophil % 1.8 %; Hematocrit 36.2 % (38-53); Hemoglobin 12.1 g/dL (13.2-16.3); Lymphocyte % 4.9 %; Mean Corpuscular Hemoglobin 30.9 pg (27-33); Mean Corpuscular Hgb Conc 33.6 g/dL (31-36); Mean Platelet Volume 7.8 fL (7.5-11.2); Platelet Count 193 10^3/uL (150-450); Red Blood Count 3.93 10^6/uL (4.06-5.63); Red Cell Distribution Width 14.5 % (12-17); White Blood Count 10.4 10^3/uL (3.6-10.2)
[2023-08-02 08:51] LABS: Calcium 7.7 mg/dL (8.6-10.3); Creatinine, Serum 0.98 mg/dL (0.67-1.17); Magnesium 1.9 mg/dL (1.9-2.7); Potassium 3.7 mmol/L (3.5-5.0); eGFR CKD-EPI 73.7 (>60)
[2023-08-02] MEDS: D5NS 0.9% 1000 ml BAG 1,000 ML IV SCH (12:24)
[2023-08-02] MEDS: Potassium Phosphate IV 5 MMOL in NS 0.9% 250 ml 250 ML IVPB ONE (13:21)
[2023-08-03 06:32] LABS: ABS Eosinophils 0.3 10^3/uL (0.0-0.5); ABS Lymphocytes 0.6 10^3/uL (1.0-4.8); ABS Monocytes 0.9 10^3/uL (0.0-1.1); ABS Neutrophils 8.2 10^3/uL (1.5-7.6); Eosinophil % 2.7 %; Hematocrit 36.2 % (38-53); Hemoglobin 12.2 g/dL (13.2-16.3); Lymphocyte % 5.7 %; Mean Corpuscular Hemoglobin 30.9 pg (27-33); Mean Corpuscular Hgb Conc 33.8 g/dL (31-36); Mean Corpuscular Volume 91.5 fL (80-97); Mean Platelet Volume 7.8 fL (7.5-11.2); Platelet Count 224 10^3/uL (150-450); Red Blood Count 3.96 10^6/uL (4.06-5.63); Red Cell Distribution Width 14.4 % (12-17); White Blood Count 9.9 10^3/uL (3.6-10.2)
[2023-08-03 07:04] LABS: Calcium 7.8 mg/dL (8.6-10.3); Creatinine, Serum 0.84 mg/dL (0.67-1.17); Magnesium 1.8 mg/dL (1.9-2.7); Phosphorus 2.3 mg/dL (2.5-5.0); Potassium 3.4 mmol/L (3.5-5.0); eGFR CKD-EPI 83.4 (>60)
[2023-08-03] MEDS: KCL 20 MEQ/100 ML IVPREMIX 20 MEQ/100 ML BAG IV SCH (09:49)
[2023-08-03] MEDS: Magnesium Sulfate 2 gm BAG 2 GM/50 ML BAG IVPB ONE (10:06)
[2023-08-03] MEDS: Dextran 70/Hypromellose Tears Eye Drops 15 ml BTL (for Artificials Tears) BOTH EYES PRN (11:56)
[2023-08-03] MEDS: Potassium Phosphate IV 5 MMOL in NS 0.9% 250 ml 250 ML IVPB ONE (11:57)
[2023-08-04 06:22] LABS: ABS Eosinophils 0.3 10^3/uL (0.0-0.5); ABS Lymphocytes 0.7 10^3/uL (1.0-4.8); ABS Monocytes 0.8 10^3/uL (0.0-1.1); ABS Neutrophils 8.1 10^3/uL (1.5-7.6); ABS Nucleated RBC 0.01 10^3/ul; Hematocrit 38.4 % (38-53); Lymphocyte % 6.6 %; Mean Corpuscular Hemoglobin 30.9 pg (27-33); Mean Corpuscular Hgb Conc 33.9 g/dL (31-36); Mean Corpuscular Volume 91.4 fL (80-97); Mean Platelet Volume 7.6 fL (7.5-11.2); Nucleated Red Blood Cells % 0.1 %/100WBC (0.0-0.8); Platelet Count 239 10^3/uL (150-450); Red Blood Count 4.21 10^6/uL (4.06-5.63); Red Cell Distribution Width 14.4 % (12-17); White Blood Count 9.9 10^3/uL (3.6-10.2)
[2023-08-04 06:43] LABS: Calcium 8.2 mg/dL (8.6-10.3); Creatinine, Serum 0.88 mg/dL (0.67-1.17); Magnesium 2.1 mg/dL (1.9-2.7); Potassium 3.6 mmol/L (3.5-5.0); eGFR CKD-EPI 82.2 (>60)
[2023-08-04] MEDS: KCL 20 MEQ/100 ML IVPREMIX 20 MEQ/100 ML BAG IV SCH (08:52)
[2023-08-04 10:20] LABS: Phosphorus 2.4 mg/dL (2.5-5.0)
[2023-08-04] MEDS: PEG 3000 GI LAVAGE 1 GALLON PO ONE (17:11)
[2023-08-05 08:48] LABS: ABS Eosinophils 0.2 10^3/uL (0.0-0.5); ABS Lymphocytes 0.7 10^3/uL (1.0-4.8); ABS Monocytes 0.8 10^3/uL (0.0-1.1); Eosinophil % 1.9 %; Hematocrit 39.4 % (38-53); Hemoglobin 13.3 g/dL (13.2-16.3); Lymphocyte % 7.2 %; Mean Corpuscular Hemoglobin 30.8 pg (27-33); Mean Corpuscular Hgb Conc 33.8 g/dL (31-36); Mean Corpuscular Volume 91.2 fL (80-97); Mean Platelet Volume 7.3 fL (7.5-11.2); Platelet Count 244 10^3/uL (150-450); Red Blood Count 4.32 10^6/uL (4.06-5.63); White Blood Count 9.7 10^3/uL (3.6-10.2)
[2023-08-05 09:12] LABS: Calcium 8.2 mg/dL (8.6-10.3); Creatinine, Serum 0.89 mg/dL (0.67-1.17); Potassium 3.5 mmol/L (3.5-5.0); eGFR CKD-EPI 81.9 (>60)
[2023-08-05] MEDS ORDERED: fentaNYL 100 mcg/2 ml 50 MCG/ML VIAL IV PRN (10:46)
[2023-08-05] MEDS ORDERED: Ondansetron 4 mg VIAL 2 MG/ML 2 ml VIAL IV PRN (10:46)
[2023-08-05] MEDS ORDERED: Naloxone 0.4 mg VIAL 0.4 mg/ml 1 ml VIAL IV PRN (10:46)
[2023-08-05] MEDS ORDERED: Midazolam 10 mg/10 ml VIAL 1 mg/ml 10 ml VIAL (10 mg) ONE (16:00)
[2023-08-05] MEDS ORDERED: fentaNYL 100 mcg/2 ml 50 MCG/ML VIAL ONE (16:00)
[2023-08-05] MEDS: Buffered Lidocaine 1% SYRIN 1 ml INTRADERM ONE (17:11)
[2023-08-05] MEDS: Lactated Ringers 1000 ml BAG 1,000 ML IV SCH (17:11)
[2023-08-06] MEDS: Benzocaine/Menthol LOZ PO PRN (01:08)
[2023-08-06 07:46] LABS: ABS Eosinophils 0.2 10^3/uL (0.0-0.5); ABS Lymphocytes 0.9 10^3/uL (1.0-4.8); ABS Monocytes 0.8 10^3/uL (0.0-1.1); ABS Neutrophils 7.8 10^3/uL (1.5-7.6); Eosinophil % 2.3 %; Hematocrit 37.4 % (38-53); Hemoglobin 12.5 g/dL (13.2-16.3); Lymphocyte % 9.4 %; Mean Corpuscular Hemoglobin 30.3 pg (27-33); Mean Corpuscular Hgb Conc 33.3 g/dL (31-36); Mean Corpuscular Volume 90.9 fL (80-97); Mean Platelet Volume 7.5 fL (7.5-11.2); Platelet Count 236 10^3/uL (150-450); Red Blood Count 4.12 10^6/uL (4.06-5.63); Red Cell Distribution Width 14.2 % (12-17); White Blood Count 9.8 10^3/uL (3.6-10.2)
[2023-08-06 08:05] LABS: Calcium 7.9 mg/dL (8.6-10.3); Creatinine, Serum 0.8 mg/dL (0.67-1.17); Magnesium 1.8 mg/dL (1.9-2.7); Potassium 3.1 mmol/L (3.5-5.0); eGFR CKD-EPI 84.6 (>60)
[2023-08-06] MEDS ORDERED: Propofol 10 MG/ML 20 ML BTL ONE (09:10)
[2023-08-06] MEDS ORDERED: Ondansetron 4 mg VIAL 2 MG/ML 2 ml VIAL ONE (09:10)
[2023-08-06] MEDS ORDERED: Dexamethasone IV 4 MG/ML VIAL 1 ml VIAL ONE (09:10)
[2023-08-06] MEDS ORDERED: Lidocaine 2% PF 5 ML VIAL ONE (09:11)
[2023-08-06] MEDS ORDERED: Rocuronium 50 mg VIAL 10 mg/ml 5 ml VIAL (50 mg) ONE ×3 (09:12→11:46)
[2023-08-06] MEDS ORDERED: fentaNYL 100 mcg/2 ml 50 MCG/ML VIAL ONE ×2 (09:14→14:13)
[2023-08-06] MEDS ORDERED: Bupivacaine 0.25% EPI 200,000 30 ML SDV ONE (10:14)
[2023-08-06] MEDS ORDERED: Ertapenem 1 GM in NS 0.9% 50 ML IVPB ONE (11:00)
[2023-08-06] MEDS ORDERED: Acetaminophen IV 1 GM/100ML 1,000 MG/100 ML BAG IV ONE (11:37)
[2023-08-06] MEDS ORDERED: HYDROmorphone 0.5 MG/0.5 ML SYRINGE ONE (11:47)
[2023-08-06] MEDS ORDERED: Sterile Water for Inj 10 ML ONE (13:56)
[2023-08-06] MEDS ORDERED: HYDROmorphone 0.5 MG/0.5 ML SYRINGE IV SLOW PU PRN (18:15)
[2023-08-07 08:23] LABS: ABS Monocytes 0.8 10^3/uL (0.0-1.1); ABS Neutrophils 8.4 10^3/uL (1.5-7.6); ABS Nucleated RBC 0.01 10^3/ul; Eosinophil % 0.5 %; Hematocrit 35.7 % (38-53); Hemoglobin 11.9 g/dL (13.2-16.3); Lymphocyte % 9.3 %; Mean Corpuscular Hemoglobin 30.8 pg (27-33); Mean Corpuscular Hgb Conc 33.3 g/dL (31-36); Mean Corpuscular Volume 92.3 fL (80-97); Mean Platelet Volume 7.6 fL (7.5-11.2); Nucleated Red Blood Cells % 0.1 %/100WBC (0.0-0.8); Platelet Count 223 10^3/uL (150-450); Red Blood Count 3.87 10^6/uL (4.06-5.63); Red Cell Distribution Width 14.4 % (12-17); White Blood Count 10.2 10^3/uL (3.6-10.2)
[2023-08-07 09:27] LABS: Calcium 7.6 mg/dL (8.6-10.3); Creatinine, Serum 0.81 mg/dL (0.67-1.17); Magnesium 1.8 mg/dL (1.9-2.7); eGFR CKD-EPI 84.3 (>60)
[2023-08-07] MEDS: Acetaminophen IV 1 GM/100ML 1,000 MG/100 ML BAG IV SCH (09:40)
[2023-08-07 10:08] LABS: Phosphorus 2.6 mg/dL (2.5-5.0); Potassium 3.1 mmol/L (3.5-5.0)
[2023-08-07] MEDS: Potassium Chloride LIQUID 20 MEQ/15 ML LIQUID PO ONE (10:37)
[2023-08-07] MEDS: Magnesium Sulfate 2 gm BAG 2 GM/50 ML BAG IVPB ONE (10:38)
[2023-08-07] MEDS: Enoxaparin 40 MG/0.4 ML SYR SUBCUT SCH (14:37)
[2023-08-07] MEDS: Potassium Chlor 20 meq TAB.ER PO ONE (14:37)
[2023-08-08 06:13] LABS: ABS Eosinophils 0.2 10^3/uL (0.0-0.5); ABS Lymphocytes 0.7 10^3/uL (1.0-4.8); ABS Monocytes 0.6 10^3/uL (0.0-1.1); ABS Neutrophils 8.7 10^3/uL (1.5-7.6); ABS Nucleated RBC 0.01 10^3/ul; Eosinophil % 1.6 %; Hematocrit 34.9 % (38-53); Hemoglobin 11.9 g/dL (13.2-16.3); Lymphocyte % 7.2 %; Mean Corpuscular Hemoglobin 31.2 pg (27-33); Mean Corpuscular Hgb Conc 34.1 g/dL (31-36); Mean Corpuscular Volume 91.5 fL (80-97); Mean Platelet Volume 7.6 fL (7.5-11.2); Nucleated Red Blood Cells % 0.1 %/100WBC (0.0-0.8); Platelet Count 228 10^3/uL (150-450); Red Blood Count 3.82 10^6/uL (4.06-5.63); Red Cell Distribution Width 14.2 % (12-17); White Blood Count 10.2 10^3/uL (3.6-10.2)
[2023-08-08 06:25] LABS: Calcium 7.5 mg/dL (8.6-10.3); Creatinine, Serum 0.81 mg/dL (0.67-1.17); Phosphorus 1.6 mg/dL (2.5-5.0); Potassium 3.8 mmol/L (3.5-5.0); eGFR CKD-EPI 84.3 (>60)
[2023-08-08] MEDS: Potassium Acid Phos 500 mg TAB PO ONE (09:32)
[2023-08-09 08:54] LABS: Calcium 7.4 mg/dL (8.6-10.3); Creatinine, Serum 0.74 mg/dL (0.67-1.17); Magnesium 1.7 mg/dL (1.9-2.7); Phosphorus 1.8 mg/dL (2.5-5.0); Potassium 3.5 mmol/L (3.5-5.0); eGFR CKD-EPI 86.6 (>60)
[2023-08-09] MEDS: PTO:Multivitamins/Mins AREDS2 (NF) CAP PO SCH (10:00)
[2023-08-09] MEDS: Magnesium Sulfate 2 gm BAG 2 GM/50 ML BAG IVPB ONE (10:53)
[2023-08-09] MEDS: Potassium Phosphate IV 15 MMOL in NS 0.9% 250 ml 250 ML IVPB ONE (12:01)
[2023-08-10 06:28] LABS: Calcium 7.7 mg/dL (8.6-10.3); Creatinine, Serum 0.73 mg/dL (0.67-1.17); Magnesium 1.9 mg/dL (1.9-2.7); Phosphorus 2.2 mg/dL (2.5-5.0); Potassium 3.4 mmol/L (3.5-5.0)
[2023-08-10] MEDS: Potassium Chlor 20 meq TAB.ER PO ONE (08:10)
[2023-08-10 10:15] VITALS: BP 96/52
[2023-08-10] MEDS ORDERED: Potassium Chlor 20 meq TAB.ER PO ONE (12:00)
== END 2023-08-10 10:48 | DRG 354 ==
LOC: EDHOLD 02:56 → ED 02:56 → SUATTDRO 11:09 → MED 11:09 → SUATTDRO 07-30 14:50 → SSU 08-06 16:54
PROVIDERS: ADMIT Internal Medicine; ATTEND Family Medicine

== ENCOUNTER 2023-08-09 12:48 | Inpatient (IN) ==
[2023-08-10] MEDS: Enoxaparin 40 MG/0.4 ML SYR SUBCUT SCH (12:09)
[2023-08-10] MEDS: Potassium Chlor 20 meq TAB.ER PO SCH (21:52)
[2023-08-10] MEDS: Nystatin TOP POWDER 15 GM BTL TOPICAL SCH (21:53)
[2023-08-10] MEDS: PTO: Multivitamins/Mins AREDS2 (NF) CAP PO SCH (22:23)
[2023-08-11 06:28] LABS: ABS Eosinophils 0.2 10^3/uL (0.0-0.5); ABS Lymphocytes 1.1 10^3/uL (1.0-4.8); ABS Monocytes 0.5 10^3/uL (0.0-1.1); ABS Neutrophils 9.4 10^3/uL (1.5-7.6); Eosinophil % 2.2 %; Hemoglobin 12.2 g/dL (13.2-16.3); Lymphocyte % 9.7 %; Mean Corpuscular Hemoglobin 30.7 pg (27-33); Mean Corpuscular Hgb Conc 33.7 g/dL (31-36); Mean Platelet Volume 7.9 fL (7.5-11.2); Platelet Count 274 10^3/uL (150-450); Red Blood Count 3.96 10^6/uL (4.06-5.63); Red Cell Distribution Width 14.7 % (12-17); White Blood Count 11.3 10^3/uL (3.6-10.2)
[2023-08-11 06:51] LABS: Albumin 2.9 g/dL (3.2-5.2); Albumin/Globulin Ratio 1.5 (1-3); Calcium 7.9 mg/dL (8.6-10.3); Creatinine, Serum 0.8 mg/dL (0.67-1.17); Globulin 1.9 g/dL (2-4); Total Bilirubin 0.7 mg/dL (0.2-1.0); Total Protein 4.8 g/dL (6.4-8.9); eGFR CKD-EPI 84.6 (>60)
[2023-08-11] MEDS: Calcium/Vitamin D TAB 250/125 TAB PO SCH (10:51)
[2023-08-12] MEDS: Enoxaparin 30 MG/0.3 ML SYR SUBCUT SCH (08:39)
[2023-08-13] MEDS: Dextran 70/Hypromellose Tears Eye Drops 15 ml BTL (for Artificials Tears) BOTH EYES PRN (23:20)
[2023-08-15 07:09] LABS: Calcium 7.7 mg/dL (8.6-10.3); Creatinine, Serum 0.85 mg/dL (0.67-1.17); Potassium 3.6 mmol/L (3.5-5.0); eGFR CKD-EPI 83.1 (>60)
[2023-08-17] MEDS: Tobramycin/Dexameth OPTH.SUSP 2.5 ml BTL BOTH EYES SCH (14:36)
[2023-08-17] MEDS: Nirmatrelvir/Ritonavir 300 mg/100 mg (eGFR > 60) 1 Dose Blister Card PO SCH (21:20)
[2023-08-18 07:53] LABS: ABS Eosinophils 0.2 10^3/uL (0.0-0.5); ABS Lymphocytes 1.3 10^3/uL (1.0-4.8); ABS Monocytes 0.4 10^3/uL (0.0-1.1); ABS Neutrophils 3.9 10^3/uL (1.5-7.6); ABS Nucleated RBC 0.01 10^3/ul; Eosinophil % 2.8 %; Hematocrit 35.7 % (38-53); Lymphocyte % 22.1 %; Mean Corpuscular Hemoglobin 30.6 pg (27-33); Mean Corpuscular Hgb Conc 33.6 g/dL (31-36); Mean Platelet Volume 7.6 fL (7.5-11.2); Nucleated Red Blood Cells % 0.1 %/100WBC (0.0-0.8); Platelet Count 285 10^3/uL (150-450); Red Blood Count 3.92 10^6/uL (4.06-5.63); Red Cell Distribution Width 14.6 % (12-17); White Blood Count 5.7 10^3/uL (3.6-10.2)
[2023-08-18 08:11] LABS: Albumin 3.4 g/dL (3.2-5.2); Albumin/Globulin Ratio 1.4 (1-3); Calcium 8.3 mg/dL (8.6-10.3); Creatinine, Serum 0.95 mg/dL (0.67-1.17); Globulin 2.5 g/dL (2-4); Potassium 3.8 mmol/L (3.5-5.0); Total Bilirubin 0.5 mg/dL (0.2-1.0); Total Protein 5.9 g/dL (6.4-8.9); eGFR CKD-EPI 76.5 (>60)
[2023-08-20] MEDS: PPD test dose 5 TU/0.1 ML TEST (*USE PPD ORDER SET*) INTRADERM ONE (19:01)
[2023-08-22 05:43] VITALS: BP 129/72
== END 2023-08-22 11:30 | DRG 393 ==
LOC: PMRU 08-10 10:50
PROVIDERS: ADMIT Physical Medicine & Rehabilitation; ATTEND Physical Medicine & Rehabilitation